=== PATIENT | male | born 1980 | race Caucasian/White ===

== ENCOUNTER 2017-02-21 20:20 | Emergency (ER) | payer MEDICAID, OTHER ==
[~2017-02-21] VITALS: Ht 177.8 cm; Wt 80.3 kg
[~2017-02-21 20:20] MED LIST: ULTR50TA PO
[2017-02-21 20:33] VITALS: BP 122/87; PULSE 87; RESP 16; TEMP 98.5; O2SAT 97
[2017-02-21] MEDS ORDERED: DEXAMETHASONE SOD PHOS 20 MG/5 ML VIAL IM ONE (21:30)
[2017-02-21] MEDS ORDERED: ORPHENADRINE INJ 60 MG/2 ML AMP IM ONE (21:30)
[2017-02-21] MEDS ORDERED: KETOROLAC TROMETHAMINE 60 MG/2 ML (IM) VIAL IM ONE (21:30)
[2017-02-21] MEDS ORDERED: CYCL1TAB29 PO (21:56)
[2017-02-21] MEDS ORDERED: IBUP800T23 PO (21:56)
--- NOTE | 2017-02-21 21:56 | PD ---
HPI Chief Complaint: Pain: Acute or Chronic Time Seen by Provider: 21:10 Travel History International Travel<30 days: No Contact w/Intl Traveler<30days: No Traveled to known affect area: No History of Present Illness HPI Patient is a 36-year-old male presenting to the emergency department for evaluation of low back pain. Patient states he has a chronic history of it however today he was working in the yard with his son when his son went to walk away and he twisted to get him injuring his back. Patient states pain is 8 out of 10 and describes it as tight, sore. He denies any numbness or tingling in his legs, no bladder or bowel incontinence, no saddle paresthesia. PFSH Past Medical History Medical History: Denies Significant Hx Tetanus Vaccination: < 5 Years Influenza Vaccination: No Past Surgical History Ear Surgery: Yes (Tumor removed (Lt.)) Social History Alcohol Use: No Tobacco Use: Yes (1 PPD) Substance Use: No Allergies-Medications (Allergen,Severity, Reaction): Coded Allergies: No Known Allergies (Verified , 02/21/17) Reported Meds & Prescriptions Reported Meds & Active Scripts Active No Active Prescriptions or Reported Medications Review of Systems Except as stated in HPI: all other systems reviewed are Neg Musculoskeletal: Positive: Myalgias, Cramping, Pain Physical Exam Narrative GENERAL: Well-nourished, well-developed patient. SKIN: Focused skin assessment warm/dry. HEAD: Normocephalic. EYES: No scleral icterus. No injection or drainage. NECK: Supple, trachea midline. No JVD or lymphadenopathy. CARDIOVASCULAR: Regular rate and rhythm without murmurs, gallops, or rubs. RESPIRATORY: Breath sounds equal bilaterally. No accessory muscle use. GASTROINTESTINAL: Abdomen soft, non-tender, nondistended. MUSCULOSKELETAL: No cyanosis, or edema. Tenderness to palpation paraspinal musculature in the lumbar region. 5 muscle strength in bilateral lower extremities. BACK: Nontender without obvious deformity. No CVA tenderness. Data Data Last Documented VS Vital Signs Date Time Temp Pulse Resp B/P Pulse Ox O2 Delivery O2 Flow Rate FiO2 02/21/17 20:33 98.5 87 16 122/87 97 Room Air Orders Ketorolac Inj (Toradol Inj) (02/21/17 21:30) Orphenadrine Inj (Norflex Inj) (02/21/17 21:30) Dexamethasone Inj (Decadron Inj) (02/21/17 21:30) [facility] Medical Decision Making Medical Screen Exam Complete: Yes Emergency Medical Condition: Yes Interpretation(s) Vital Signs Date Time Temp Pulse Resp B/P Pulse Ox O2 Delivery O2 Flow Rate FiO2 02/21/17 20:33 98.5 87 16 122/87 97 Room Air Differential Diagnosis Sprain versus strain versus discogenic pain versus spasm Narrative Course The patient is a 36-year-old male presenting to emergency for evaluation of low back pain. Patient is neurologically intact, pain is more consistent with a strain, spasm. Patient was given Norflex, Toradol, dexamethasone in the emergency department. He is encouraged to apply warm heat to affected area, continue range of motion exercises, avoid bed rest and avoid exacerbating activities. Verbalized understanding of these instructions. Patient was encouraged to take medications consistently and as directed. He is encouraged follow-up with primary care return to emergency department for any new or worsening symptoms. Patient is stable for discharge. Diagnosis Primary Impression: Strain of lumbar paraspinal muscle Qualified Code: S39.012A - Strain of lumbar paraspinal muscle, initial encounter Additional Impression: Lumbar paraspinal muscle spasm Referrals: [facility] Primary Care Physician Patient Instructions: General Instructions, Muscle Spasm (ED), Muscle Strain ( GEN) Additional Instructions: Follow-up with primary doctor Take medications as directed Return to emergency department for any new or worsening symptoms Apply warm moist heat to affected area, continue range of motion exercises, avoid bed rest, avoid exacerbating activities Med/Other Pt SpecificInfo: Prescription(s) given Scripts Ibuprofen 800 Mg [id number] Mg PO Q6HR PRN (PAIN) #40 TAB Ref 0 Prov:Staci Lim 02/21/17 Cyclobenzaprine (Flexeril)10 Mg Tab10 Mg PO TID PRN (MUSCLE SPASM) 10 Days Ref 0 Prov:Staci Lim 02/21/17 Disposition: 01 DISCHARGE HOME Condition: Stable Staci Lim Feb 21, 2017 21:56
== END 2017-02-21 22:00 | disposition home or self-care (01) ==
LOC: PHEFT 20:20
DX: S39.012A Strain of muscle, fascia and tendon of lower back, initial encounter (principal); M62.830 Muscle spasm of back; F17.200 Nicotine dependence, unspecified, uncomplicated; X50.1XXA Overexertion from prolonged static or awkward postures, initial encounter; Y93.H2 Activity, gardening and landscaping; Y92.096 Garden or yard of other non-institutional residence as the place of occurrence of the external cause
CPT/HCPCS: 96372; 99283; J1100; J1885; J2360

== ENCOUNTER 2017-06-21 12:42 | Emergency (ER) | payer MEDICAID, OTHER ==
[~2017-06-21] VITALS: Ht 180.3 cm; Wt 80.1 kg
[~2017-06-21 12:42] MED LIST changes: +CYCL1TAB29 PO; +IBUP800T23 PO; -ULTR50TA PO
[2017-06-21 12:56] VITALS: BP 144/78; PULSE 73; RESP 16; TEMP 98.4; O2SAT 98
[2017-06-21] MEDS ORDERED: ULTR50TA5 PO (13:13)
[2017-06-21] MEDS ORDERED: CLIN1CAP6 PO (13:13)
--- NOTE | 2017-06-21 13:13 | PD ---
HPI . Jaw pain and swelling Chief Complaint: Jaw pain Time Seen by Provider: 13:06 Travel History International Travel<30 days: No Contact w/Intl Traveler<30days: No History of Present Illness HPI This patient presents with about a 3 day history of increasing pain and swelling of his right jaw. He states that he has been doing warm salt water gargles, aspirin and Orajel without relief. Pain is described as a constant, throbbing sensation which is currently rated 10/10. PFSH Past Surgical History Ear Surgery: Yes (Tumor removed (Lt.)) Social History Alcohol Use: No Tobacco Use: Yes (1 PPD) Substance Use: No Allergies-Medications (Allergen,Severity, Reaction): Coded Allergies: No Known Allergies (Verified , 02/21/17) Reported Meds & Prescriptions Reported Meds & Active Scripts Active Ibuprofen 800 Mg Tab 800 Mg PO Q6HR PRN Flexeril (Cyclobenzaprine HCl) 10 Mg Tab 10 Mg PO TID PRN 10 Days Review of Systems Except as stated in HPI: all other systems reviewed are Neg General / Constitutional: No: Fever, Chills HENT: Positive: Dental Difficulties, Other (right jaw swelling) Physical Exam Narrative GENERAL: Awake and alert and in no acute distress. SKIN: Warm and dry. HEAD: Atraumatic. Normocephalic. Swelling of the right jaw. His right mandibular third molar is partially erupted and tender. EYES: Pupils equal and round. NECK: Trachea midline. No cervical lymphadenopathy. CARDIOVASCULAR: Regular rate and rhythm. RESPIRATORY: No accessory muscle use. MUSCULOSKELETAL: No obvious deformities. No edema. NEUROLOGICAL: Awake and alert. No obvious cranial nerve deficits. Motor grossly within normal limits. Normal speech. PSYCHIATRIC: Appropriate mood and affect; insight and judgment normal. Data Data Last Documented VS Vital Signs Date Time Temp Pulse Resp B/P (MAP) Pulse Ox O2 Delivery O2 Flow Rate FiO2 06/21/17 12:56 98.4 73 16 144/78 (100) 98 MDM Medical Decision Making Medical Screen Exam Complete: Yes Emergency Medical Condition: Yes Differential Diagnosis Differential diagnosis of a toothache includes but is not limited to dental caries, dental abscess, gingivitis, drug-seeking behavior. Narrative Course This patient presents with pain and swelling of the right jaw associated with tenderness to percussion of his right lower wisdom tooth. He will be discharged on clindamycin and Ultram and follow-up with a dentist. Diagnosis Primary Impression: Dental abscess Referrals: Dentist Med/Other Pt SpecificInfo: Prescription(s) given Scripts Tramadol (Ultram) 50 Mg Tab 50 MG PO Q4H Y for PAIN, #12 TAB 0 Refills Prov: Radha Castellanos MD 06/21/17 Clindamycin (Clindamycin) 300 Mg Cap 600 MG PO Q8H for Infection for 10 Days, CAP 0 Refills Prov: Radha Castellanos MD 06/21/17 Disposition: 01 DISCHARGE HOME Condition: Stable Radha Castellanos MD Jun 21, 2017 13:13
== END 2017-06-21 13:45 | disposition home or self-care (01) ==
LOC: PHEFT 12:42
DX: K04.7 Periapical abscess without sinus (principal); F17.210 Nicotine dependence, cigarettes, uncomplicated
CPT/HCPCS: 99284